=== PATIENT | female | born 1990 | race African-American/Black ===

== ENCOUNTER 2020-03-29 20:28 | Emergency (ER) | payer MEDICAID, OTHER ==
[~2020-03-29] VITALS: Ht 160 cm; Wt 67.0 kg
[2020-03-29 23:07] VITALS: BP 131/74
== END 2020-03-29 23:08 | disposition home or self-care (01) ==
LOC: ER 20:28
DX: S90.01XA Contusion of right ankle, initial encounter (principal); Z88.6 Allergy status to analgesic agent; X50.1XXA Overexertion from prolonged static or awkward postures, initial encounter; Y93.89 Activity, other specified; Y92.89 Other specified places as the place of occurrence of the external cause
CPT/HCPCS: 73610; 99283

== ENCOUNTER 2020-05-03 10:38 | Emergency (ER) | payer OTHER ==
[~2020-05-03] VITALS: Ht 162.6 cm; Wt 67.0 kg
[2020-05-03] MEDS ORDERED: IBUPROFEN 400MG TABLET PO ONE (11:45)
[2020-05-03] MEDS ORDERED: SODIUM CHLORIDE 0.9% 500 ML IV ONE (11:45)
[2020-05-03 11:47] LABS: CHLORIDE 104 mEq/L (98-107)
[2020-05-03 11:55] LABS: BASOPHILS % 0.6 % (0.0-2.0); EOSINOPHILS % 1.1 % (0.0-5.0); HEMATOCRIT. 42.7 % (36.0-48.0); HEMOGLOBIN. 14.4 g/dL (12.0-16.0); LYMPHOCYTES % 38.3 % (20.0-50.0); MEAN CORPUSCULAR HEMOGLOBIN 31.1 pg (28.0-32.0); MEAN CORPUSCULAR VOLUME 92.1 fL (81.0-99.0); MONOCYTES % 12.1 % (2.0-8.0); NEUTROPHILS % 47.9 % (40.0-76.0); PLATELET 312 x1000/uL (130-400); RED BLOOD CELL COUNT 4.63 mill/uL (4.2-5.4)
[2020-05-03 12:06] LABS: *AMPHETAMINES SCREEN URINE NEGATIVE (NEGATIVE); *BARBITURATES SCREEN URINE NEGATIVE (NEGATIVE); *BENZODIAZEPINES SCREEN URINE NEGATIVE (NEGATIVE); *COCAINE SCREEN URINE NEGATIVE (NEGATIVE)
[2020-05-03 12:07] LABS: CANNABINOID URINE SCREEN NEGATIVE (NEGATIVE); METHADONE URINE SCREEN NEGATIVE (NEGATIVE); OPIATES URINE SCREEN NEGATIVE (NEGATIVE); PHENCYCLIDINE URINE SCREEN NEGATIVE (NEGATIVE)
[2020-05-03 12:30] LABS: HCG SCREEN NEGATIVE
[2020-05-03] MEDS ORDERED: POTASSIUM CHLORIDE 20MEQ TABLET SR PO NR (12:30)
[2020-05-03 14:16] VITALS: BP 114/68
== END 2020-05-03 14:38 | disposition home or self-care (01) ==
LOC: ER 10:38
DX: R07.89 Other chest pain (principal); J45.909 Unspecified asthma, uncomplicated; Z88.6 Allergy status to analgesic agent
CPT/HCPCS: 36415; 71045; 80053; 80305; 81025; 83880; 84484; 84703; 85025; 85379; 93005; 93970; 96360; 96361; 99285

== ENCOUNTER 2022-06-14 17:45 | Inpatient (IN) | payer OTHER ==
[~2022-06-14] VITALS: Ht 162.6 cm; Wt 90.7 kg
[2022-06-14] MEDS ORDERED: RHO(D) IMMUNE GLOBULIN 300 MCG/SYR IM ONE (19:15)
[2022-06-14] MEDS ORDERED: METHYLERGONOVINE MALEATE 0.2 MG/ML IM PRN (19:15)
[2022-06-14] MEDS ORDERED: LACTATED RINGERS 1,000 ML IV SCH (19:15)
[2022-06-14] MEDS ORDERED: LIDOCAINE HCL 1% 20ML VIAL (Pyxis) INJ INFIL SCH (19:15)
[2022-06-14] MEDS ORDERED: CARBOPROST TROMETHAMINE 250 MCG/ML AMPUL IM PRN (19:15)
[2022-06-14] MEDS ORDERED: MISOPROSTOL 100MCG TABLET RC SCH (19:15)
[2022-06-14] MEDS ORDERED: PENICILLIN G POTASSIUM 5 MMU in DEXT 5% WATER 100 ML IV SCH (19:15)
[2022-06-14] MEDS ORDERED: NALOXONE HCL 0.4 MG/ML 1ML VIAL IM PRN (19:15)
[2022-06-14] MEDS ORDERED: BUTORPHANOL TARTRATE 2 MG/ML VIAL IV PRN (19:15)
[2022-06-14] MEDS ORDERED: OXYTOCIN 30 UNITS/500ML NS PMX 500 ML IV SCH (19:15)
[2022-06-14] MEDS ORDERED: PENICILLIN G POTASSIUM 2.5 MMU in DEXTROSE 5% WATER 50 ML IV SCH (19:30)
[2022-06-14 21:10] LABS: HEMATOCRIT. 32.7 % (36.0-48.0); HEMOGLOBIN. 10.8 g/dL (12.0-16.0); MEAN CORPUSCULAR HEMOGLOBIN 28.9 pg (28.0-32.0); MEAN CORPUSCULAR VOLUME 87.4 fL (81.0-99.0); MEAN PLATELET VOLUME 9.6 fl (7.4-10.4); PLATELET 209 x1000/uL (130-400); RED BLOOD CELL COUNT 3.74 mill/uL (4.2-5.4)
[2022-06-14 21:12] LABS: CLARITY URINE CLEAR (CLEAR); COLOR URINE YELLOW (YELLOW); KETONES URINE NEGATIVE (NEGATIVE); LEUKOCYTE ESTERASE URINE NEGATIVE (NEGATIVE); NITRITE URINE NEGATIVE (NEGATIVE); OCCULT BLOOD URINE NEGATIVE (NEGATIVE); PH URINE 6.5 (4.5-8.0); PROTEIN URINE NEGATIVE (NEGATIVE); SPECIFIC GRAVITY URINE 1.012 (1.005-1.030); UROBILINOGEN URINE 0.2 E.U./dL (0.2-1.0)
[2022-06-14] MEDS ORDERED: ROPIVACAINE HCL/PF EPIDURAL 200 ML EPI ONE (21:14)
[2022-06-14] MEDS ORDERED: ROPIVACAINE HCL/PF EPIDURAL 200 ML EPI SCH (21:15)
[2022-06-14 21:19] LABS: PARTIAL THROMBOPLASTIN TIME 26.1 sec (23.4-31.0); PROTHROMBIN TIME 10.3 sec (9.6-11.0)
[2022-06-14 21:25] LABS: *AMPHETAMINES SCREEN URINE NEGATIVE (NEGATIVE); *BARBITURATES SCREEN URINE NEGATIVE (NEGATIVE); *BENZODIAZEPINES SCREEN URINE NEGATIVE (NEGATIVE); *COCAINE SCREEN URINE NEGATIVE (NEGATIVE); CANNABINOID URINE SCREEN NEGATIVE (NEGATIVE); METHADONE URINE SCREEN NEGATIVE (NEGATIVE); OPIATES URINE SCREEN NEGATIVE (NEGATIVE); PHENCYCLIDINE URINE SCREEN NEGATIVE (NEGATIVE)
[2022-06-14 21:32] LABS: HEPATITIS B SURFACE ANTIGEN NEGATIVE
[2022-06-14 21:40] LABS: NUCLEATED RED BLOOD CELLS 1 /100 WBC; PLATELET ESTIMATE NORMAL
[2022-06-15] MEDS ORDERED: IBUPROFEN 400MG TABLET PO PRN ×2 (00:15)
[2022-06-15] MEDS ORDERED: METHYLERGONOVINE MALEATE 0.2 MG/ML IM PRN (00:15)
[2022-06-15] MEDS ORDERED: OXYTOCIN 30 UNITS/500ML NS PMX 500 ML IV SCH (00:15)
[2022-06-15] MEDS ORDERED: IBUPROFEN 800MG TABLET PO PRN (00:15)
[2022-06-15] MEDS ORDERED: RHO(D) IMMUNE GLOBULIN 300 MCG/SYR IM PRN (00:15)
[2022-06-15] MEDS ORDERED: LANOLIN OINT 7GM TUBE TOP PRN (00:15)
[2022-06-15 01:20] VITALS: BP 125/67
[2022-06-15 04:00] VITALS: BP 102/55
[2022-06-15 07:20] VITALS: BP 104/57
[2022-06-15 07:35] LABS: HEMATOCRIT. 32.9 % (36.0-48.0); HEMOGLOBIN. 10.7 g/dL (12.0-16.0); MEAN CORPUSCULAR HEMOGLOBIN 28.4 pg (28.0-32.0); MEAN CORPUSCULAR VOLUME 87.3 fL (81.0-99.0); MEAN PLATELET VOLUME 9.7 fl (7.4-10.4); PLATELET 209 x1000/uL (130-400); RED BLOOD CELL COUNT 3.77 mill/uL (4.2-5.4); RED CELL DISTRIBUTION WIDTH 14.9 % (11.6-14.6)
[2022-06-15] MEDS ORDERED: PRENATAL VIT/FE FUMARATE/FA TABLET PO SCH (09:00)
[2022-06-15] MEDS: FERROUS SULFATE 325MG TABLET PO SCH ×3 (09:39→15:25)
[2022-06-15] MEDS: PRENATAL VIT/FE FUMARATE/FA TABLET PO SCH (09:39)
[2022-06-15] MEDS: IBUPROFEN 800MG TABLET PO PRN ×2 (09:40→22:12)
[2022-06-15 14:00] LABS: NUCLEATED RED BLOOD CELLS 1 /100 WBC
[2022-06-15 14:03] LABS: PLATELET ESTIMATE NORMAL
[2022-06-15 16:00] VITALS: BP 101/45
[2022-06-15] MEDS ORDERED: GLYCERIN/WITCH HAZEL LEAF MEDICATED PAD TOP PRN (20:15)
[2022-06-15 20:21] VITALS: BP 107/51
[2022-06-16 03:56] VITALS: BP 108/53
[2022-06-16] MEDS: IBUPROFEN 800MG TABLET PO PRN (05:40)
[2022-06-16 07:15] VITALS: BP 98/51
[2022-06-16] MEDS: FERROUS SULFATE 325MG TABLET PO SCH (07:30)
[2022-06-16] MEDS: PRENATAL VIT/FE FUMARATE/FA TABLET PO SCH (08:50)
[2022-06-16] MEDS ORDERED: IBUP-2029 MT (09:30)
== END 2022-06-16 10:55 | disposition home or self-care (01) | DRG 560 ==
LOC: OBSVTOIN 17:45 → 8 EST LDRP 17:45 → 8EST 06-15 07:23
PROVIDERS: ADMIT Obstetrics & Gynecology; ATTEND Obstetrics & Gynecology
PROC: 10E0XZZ Delivery of Products of Conception, External Approach (ICD-10-PCS; principal; 2022-06-14)
DX: O80 Encounter for full-term uncomplicated delivery (principal); Z37.0 Single live birth; D62 Acute posthemorrhagic anemia; Z20.822 Contact with and (suspected) exposure to COVID-19; J45.909 Unspecified asthma, uncomplicated; Z88.1 Allergy status to other antibiotic agents; Z3A.38 38 weeks gestation of pregnancy
CPT/HCPCS: 36415; 80305; 81003; 85025; 86592; 86703; 86762; 86850; 86900; 87340; 87426; 90384; 94760; G0378; J2540; J2795; J7060; A4315; J2590